=== PATIENT | male | born 1990 | race Two or more races ===

== ENCOUNTER 2020-11-06 08:58 | Emergency (ER) | payer MEDICAID, OTHER ==
[~2020-11-06] VITALS: Ht 165.1 cm; Wt 77.1 kg
[2020-11-06 09:26] VITALS: BP 145/98
== END 2020-11-06 10:06 | disposition home or self-care (01) ==
LOC: ER 08:58
DX: S46.212A Strain of muscle, fascia and tendon of other parts of biceps, left arm, initial encounter (principal); X58.XXXA Exposure to other specified factors, initial encounter; Y93.89 Activity, other specified; Y92.89 Other specified places as the place of occurrence of the external cause; Y99.0 Civilian activity done for income or pay

== ENCOUNTER 2023-12-15 18:35 | Emergency (ER) | payer BC, OTHER ==
[~2023-12-15] VITALS: Ht 165.1 cm; Wt 75.0 kg
[2023-12-15 18:40] VITALS: BP 161/81; PULSE 94; RESP 14; TEMP 98.6; O2SAT 99
[2023-12-15] MEDS ORDERED: METH-1181 PO (19:56)
[2023-12-15] MEDS ORDERED: METH4PAK PO (19:56)
== END 2023-12-15 20:06 | disposition home or self-care (01) ==
LOC: ER 18:35
DX: S76.812A Strain of other specified muscles, fascia and tendons at thigh level, left thigh, initial encounter (principal); X58.XXXA Exposure to other specified factors, initial encounter; Y93.89 Activity, other specified; Y92.89 Other specified places as the place of occurrence of the external cause; Y99.8 Other external cause status